=== PATIENT | male | born 1955 | race African-American/Black ===

== ENCOUNTER 2021-01-02 14:29 | Inpatient (IN) | payer MEDICARE, MEDICAID ==
[~2021-01-02] VITALS: Ht 177.8 cm; Wt 97.8 kg
[2021-01-02] MEDS ORDERED: ASPirin 81 mg TAB PO ONE (15:00)
[2021-01-02] MEDS ORDERED: ACETAMINOPHEN 325 MG TAB PO PRN (15:45)
[2021-01-02] MEDS ORDERED: HYDROcodone-ACET 5/325MG TAB PO PRN (15:45)
[2021-01-02] MEDS ORDERED: MORPHINE SULFATE 4 MG/ML SYR/VIAL IV PRN (15:45)
[2021-01-02] MEDS ORDERED: ONDANSETRON HCL 4 MG/2 ML VIAL IV PRN (15:45)
[2021-01-02] MEDS ORDERED: MORPHINE SULF INJ 2 MG/ML SYRINGE 1ML IV PRN (15:45)
[2021-01-02] MEDS ORDERED: DOCUSATE SOD 100 MG CAP PO PRN (15:45)
[2021-01-02] MEDS ORDERED: NITROGLYCERIN 0.4 MG SL TAB SL PRN (15:45)
[2021-01-02 15:56] LABS: Basophils # (auto) 0 10 ^3/uL (0-0.2); Basophils % (auto) 0.3 % (0.0-2.0); Eosinophils # (auto) 0 10 ^3/uL (0-0.8); Eosinophils % (auto) 0.2 % (0.0-7.0); Hematocrit 38.5 % (41.0-53.0); Hemoglobin 13.3 g/dL (13.5-17.5); Lymphocytes # (auto) 1.6 10 ^3/uL (0.4-5.4); Lymphocytes % (auto) 10.6 % (10.0-50.0); Mean Corpuscular Hemoglobin 31.7 pg (28.0-32.0); Mean Corpuscular Hgb Conc. 34.5 g/dL (32.0-36.0); Monocytes # (auto) 1.5 10 ^3/uL (0-1.3); Monocytes % (auto) 10.4 % (0.0-12.0); Neutrophils # (auto) 11.7 10 ^3/uL (1.6-8.6); Neutrophils % (auto) 78.5 % (37.0-80.0); Platelet Count (auto) 321 10^3/uL (140-450); Red Blood Cells 4.18 10^6/uL (4.5-5.90); White Blood Cell 14.9 10^3/uL (4.4-10.8)
[2021-01-02 16:05] LABS: Calcium 11.5 mg/dL (8.5-10.1)
[2021-01-02 16:25] LABS: BUN/Creatinine Ratio 17.6; Bilirubin, Total 0.5 mg/dL (0.2-1.0); Total Protein 9.3 g/dL (6.4-8.2)
[2021-01-02 16:37] LABS: Potassium 5.6 mmol/L (3.5-5.1)
[2021-01-02] MEDS ORDERED: cefTRIAXone 1GM/50ML D5W 50 ML IV ONE (17:30)
[2021-01-02 22:00] VITALS: BP 121/82
[2021-01-02] MEDS ORDERED: SODIUM CHLORIDE 0.9% 1,000 ML IV SCH (22:00)
[2021-01-02] MEDS ORDERED: DEXTROSE (50%) 50ML SYRG IV PRN (22:00)
[2021-01-02] MEDS ORDERED: SODIUM ZIRCONIUM CYCL 10 GM PAK PO ONE (22:00)
[2021-01-02] MEDS: FAMOTIDINE 20 MG TAB PO SCH (22:05)
[2021-01-02] MEDS: HEPARIN SODIUM (PORCINE) 5000 UNITS/ML 1ML VIAL SC SCH (23:09)
[2021-01-02] MEDS: ACCU-CHEK COMFORT CURVE STRIP VI SCH (23:10)
[2021-01-02] MEDS: InsuLIN REG 1unit/0.01ml Soln (100units/ml) SC SCH (23:13)
[2021-01-02] MEDS: INSULIN LANTUS (GLARGINE) 1 /0.01ml (100units/ml) SC SCH (23:15)
[2021-01-02 23:33] LABS: Urine Bacteria MOD /hpf (None Seen); Urine Blood Negative /uL (Negative); Urine Hyaline Cast MANY /lpf (0 - 2); Urine Mucus FEW (None Seen); Urine Specific Gravity 1.021 (1.001-1.035); Urine WBC 6 /hpf (0 - 3)
[2021-01-03] VITALS (7 sets, daily range): BP systolic 109–139; BP diastolic 49–83
[2021-01-03] MEDS: TEMAZEPAM 15 MG CAP PO PRN ×2 (01:56→22:14)
[2021-01-03 06:19] LABS: Basophils # (auto) 0.1 10 ^3/uL (0-0.2); Basophils % (auto) 0.4 % (0.0-2.0); Eosinophils # (auto) 0.1 10 ^3/uL (0-0.8); Eosinophils % (auto) 0.4 % (0.0-7.0); Hematocrit 35.1 % (41.0-53.0); Hemoglobin 12.2 g/dL (13.5-17.5); Lymphocytes % (auto) 15.1 % (10.0-50.0); Mean Corpuscular Hemoglobin 31.9 pg (28.0-32.0); Mean Corpuscular Hgb Conc. 34.7 g/dL (32.0-36.0); Mean Corpuscular Volume 91.9 fL (80.0-100.0); Monocytes # (auto) 1.6 10 ^3/uL (0-1.3); Monocytes % (auto) 11.9 % (0.0-12.0); Neutrophils # (auto) 9.7 10 ^3/uL (1.6-8.6); Neutrophils % (auto) 72.2 % (37.0-80.0); Nucleated Red Blood Cells % 0.2 %; Platelet Count (auto) 287 10^3/uL (140-450); Red Blood Cells 3.82 10^6/uL (4.5-5.90); Red Cell Distribution Width 13.9 % (11.8-14.3); White Blood Cell 13.4 10^3/uL (4.4-10.8)
[2021-01-03] MEDS: ACCU-CHEK COMFORT CURVE STRIP VI SCH ×4 (06:24→22:07)
[2021-01-03] MEDS: InsuLIN REG 1unit/0.01ml Soln (100units/ml) SC SCH ×4 (06:25→22:13)
[2021-01-03 07:57] LABS: Potassium 4.6 mmol/L (3.5-5.1)
[2021-01-03 08:09] LABS: Albumin 2.7 g/dL (3.4-5.0); Bilirubin, Total 0.4 mg/dL (0.2-1.0); Calcium 10.4 mg/dL (8.5-10.1); Total Protein 8.6 g/dL (6.4-8.2)
[2021-01-03] MEDS ORDERED: ENOXAPARIN SOD 30 MG/0.3 ML SYRINGE SC SCH (10:00)
[2021-01-03] MEDS: HEPARIN SODIUM (PORCINE) 5000 UNITS/ML 1ML VIAL SC SCH ×2 (10:32→22:16)
[2021-01-03] MEDS: SODIUM CHLORIDE 0.9% 1,000 ML IV SCH (15:12)
[2021-01-03] MEDS: cefTAZidime 1 GM in SODIUM CHL 0.9% 50 ML IV SCH (18:40)
[2021-01-03] MEDS: INSULIN LANTUS (GLARGINE) 1 /0.01ml (100units/ml) SC SCH (22:13)
[2021-01-03 23:16] LABS: Urine Bacteria NONE SEEN /hpf (None Seen); Urine Blood Negative /uL (Negative); Urine Hyaline Cast FEW /lpf (0 - 2); Urine Specific Gravity 1.018 (1.001-1.035); Urine WBC <1 /hpf (0 - 3)
[2021-01-03 23:29] LABS: Protein, Urine 51.6 mg/dL (0.0-11.9)
[2021-01-04] MEDS: SODIUM CHLORIDE 0.9% 1,000 ML IV SCH ×2 (03:00→15:30)
[2021-01-04] MEDS: ACCU-CHEK COMFORT CURVE STRIP VI SCH ×4 (07:00→22:08)
[2021-01-04] MEDS: InsuLIN REG 1unit/0.01ml Soln (100units/ml) SC SCH ×4 (07:00→22:11)
[2021-01-04] MEDS: HEPARIN SODIUM (PORCINE) 5000 UNITS/ML 1ML VIAL SC SCH ×2 (08:33→22:11)
[2021-01-04] MEDS ORDERED: HALOPERIDOL LACTATE 5 MG/ML INJ VIAL IM PRN (09:15)
[2021-01-04] MEDS: QUEtiapine FUMARATE 25 MG TAB PO SCH ×2 (10:18→22:08)
[2021-01-04 13:00] VITALS: BP 139/74
[2021-01-04 17:00] VITALS: BP 118/77
[2021-01-04] MEDS: cefTAZidime 1 GM in SODIUM CHL 0.9% 50 ML IV SCH (18:23)
[2021-01-04 20:00] VITALS: BP 137/79
[2021-01-04 22:00] VITALS: BP 137/79
[2021-01-04] MEDS: FAMOTIDINE 20 MG TAB PO SCH (22:07)
[2021-01-04] MEDS: INSULIN LANTUS (GLARGINE) 1 /0.01ml (100units/ml) SC SCH (22:11)
[2021-01-04 22:23] LABS: Albumin 2.6 g/dL (3.4-5.0); Calcium 10.6 mg/dL (8.5-10.1); Potassium 4.7 mmol/L (3.5-5.1)
[2021-01-04 22:27] LABS: Bilirubin, Total 0.4 mg/dL (0.2-1.0); Phosphorus 2.7 mg/dL (2.5-4.90); Total Protein 8.6 g/dL (6.4-8.2)
[2021-01-04 22:28] LABS: BUN/Creatinine Ratio 23.7
[2021-01-05] MEDS ORDERED: ALBUAER3 IN (01:58)
[2021-01-05] MEDS ORDERED: LISI2.5T47 PO (01:58)
[2021-01-05] MEDS ORDERED: MAGN1TAB29 PO (01:58)
[2021-01-05] MEDS ORDERED: CLOP75TA28 PO (01:58)
[2021-01-05] MEDS ORDERED: INSUINJ37 SC (01:58)
[2021-01-05] MEDS ORDERED: MONT5CHW23 PO (01:58)
[2021-01-05] MEDS ORDERED: FURO40TA4 PO (01:58)
[2021-01-05] MEDS ORDERED: GLIP5TAB12 PO (01:58)
[2021-01-05] MEDS ORDERED: SPIR25TA8 PO (01:58)
[2021-01-05] MEDS ORDERED: LORA0.5T20 PO (01:58)
[2021-01-05] MEDS ORDERED: ISOS30TA4 PO (01:58)
[2021-01-05] MEDS ORDERED: PRED10TA PO (01:58)
[2021-01-05] MEDS ORDERED: METO2.5T11 PO (01:58)
[2021-01-05] MEDS ORDERED: HYDR1TAB97 PO (01:58)
[2021-01-05] MEDS ORDERED: ASPI-543 PO (01:58)
[2021-01-05] MEDS ORDERED: AMIO200T33 PO (01:58)
[2021-01-05] MEDS ORDERED: CARV12.544 PO (01:58)
[2021-01-05] MEDS ORDERED: POTA1TAB61 PO (01:58)
[2021-01-05] MEDS ORDERED: HYDR10TA26 PO (01:58)
[2021-01-05] MEDS ORDERED: ATO40T PO (01:58)
[2021-01-05] MEDS ORDERED: CLOP75TA70 PO (01:58)
[2021-01-05] MEDS: SODIUM CHLORIDE 0.9% 1,000 ML IV SCH ×3 (04:00→21:03)
[2021-01-05] MEDS: ACCU-CHEK COMFORT CURVE STRIP VI SCH ×4 (06:31→21:49)
[2021-01-05] MEDS: InsuLIN REG 1unit/0.01ml Soln (100units/ml) SC SCH ×4 (06:35→21:58)
[2021-01-05] MEDS ORDERED: ASPirin 325 MG TAB PO ONE (08:15)
[2021-01-05] MEDS ORDERED: ADENOSINE 78 MG in GIVE UN-DILUTED 0 ML IV STA (08:42)
[2021-01-05 09:13] LABS: Basophils # (auto) 0 10 ^3/uL (0-0.2); Basophils % (auto) 0.4 % (0.0-2.0); Eosinophils # (auto) 0.1 10 ^3/uL (0-0.8); Hematocrit 41.1 % (41.0-53.0); Hemoglobin 13.2 g/dL (13.5-17.5); Lymphocytes # (auto) 1.6 10 ^3/uL (0.4-5.4); Lymphocytes % (auto) 19.3 % (10.0-50.0); Mean Corpuscular Hemoglobin 31.6 pg (28.0-32.0); Mean Corpuscular Hgb Conc. 32.2 g/dL (32.0-36.0); Monocytes % (auto) 12.5 % (0.0-12.0); Neutrophils # (auto) 5.4 10 ^3/uL (1.6-8.6); Neutrophils % (auto) 66.8 % (37.0-80.0); Nucleated Red Blood Cells % 0.1 %; Platelet Count (auto) 208 10^3/uL (140-450); Red Blood Cells 4.19 10^6/uL (4.5-5.90); Red Cell Distribution Width 14.5 % (11.8-14.3); White Blood Cell 8.2 10^3/uL (4.4-10.8)
[2021-01-05 09:15] VITALS: BP 129/77
[2021-01-05 09:47] LABS: Magnesium 1.9 mg/dL (1.6-2.6)
[2021-01-05 10:17] LABS: Anion Gap 9 (5-15); Bilirubin, Total 0.4 mg/dL (0.2-1.0); Carbon Dioxide 18 mmol/L (21-32); Chloride 105 mmol/L (98-107); Potassium 4.7 mmol/L (3.5-5.1); Sodium 132 mmol/L (136-145)
[2021-01-05 10:18] LABS: Alanine Aminotransferase 45 U/L (16-61); Albumin 2.5 g/dL (3.4-5.0); Alkaline Phosphatase 83 U/L (45-117); Aspartate Aminotransferase 31 U/L (15-37); Blood Urea Nitrogen 48 mg/dL (7-18); Calcium 10.3 mg/dL (8.5-10.1); GFR African American 39 mL/min; GFR Non-African American 33 mL/min; Glucose 165 mg/dL (74-106); Total Protein 8.3 g/dL (6.4-8.2)
[2021-01-05 10:54] VITALS: BP 133/69
[2021-01-05] MEDS: ASPirin 81 mg TAB PO SCH (11:58)
[2021-01-05] MEDS: QUEtiapine FUMARATE 25 MG TAB PO SCH ×2 (11:58→21:54)
[2021-01-05] MEDS: FAMOTIDINE 20 MG TAB PO SCH (11:58)
[2021-01-05] MEDS: HEPARIN SODIUM (PORCINE) 5000 UNITS/ML 1ML VIAL SC SCH ×2 (12:06→22:04)
[2021-01-05] MEDS: cefTAZidime 1 GM in SODIUM CHL 0.9% 50 ML IV SCH ×2 (12:11→21:53)
[2021-01-05 12:15] VITALS: BP 133/86
[2021-01-05] MEDS: CARVEDILOL 12.5 MG TAB PO SCH ×3 (12:17→22:52)
[2021-01-05 12:20] LABS: Free T4 (Free Thyroxine) 1.5 ng/dL (0.89-1.76)
[2021-01-05 13:47] LABS: CRP High Sensitivity 15.6 mg/dL (< 0.3)
[2021-01-05 14:15] LABS: Folate (Folic Acid) 13.21 ng/mL (5.38-24)
[2021-01-05 16:43] VITALS: BP 106/57
[2021-01-05 20:00] VITALS: BP 138/69
[2021-01-05] MEDS: INSULIN LANTUS (GLARGINE) 1 /0.01ml (100units/ml) SC SCH (21:58)
[2021-01-05 22:00] VITALS: BP 138/68
[2021-01-06 05:00] VITALS: BP 111/85
[2021-01-06] MEDS: SODIUM CHLORIDE 0.9% 1,000 ML IV SCH ×2 (05:42→10:00)
[2021-01-06] MEDS: ACCU-CHEK COMFORT CURVE STRIP VI SCH (06:34)
[2021-01-06] MEDS: InsuLIN REG 1unit/0.01ml Soln (100units/ml) SC SCH (06:35)
[2021-01-06 08:30] VITALS: BP 126/74
[2021-01-06] MEDS: HEPARIN SODIUM (PORCINE) 5000 UNITS/ML 1ML VIAL SC SCH (10:00)
[2021-01-06] MEDS: QUEtiapine FUMARATE 25 MG TAB PO SCH (10:00)
[2021-01-06] MEDS: FAMOTIDINE 20 MG TAB PO SCH (10:00)
[2021-01-06] MEDS: CARVEDILOL 12.5 MG TAB PO SCH (10:00)
[2021-01-06] MEDS: ASPirin 81 mg TAB PO SCH (10:00)
[2021-01-06] MEDS: cefTAZidime 1 GM in SODIUM CHL 0.9% 50 ML IV SCH (10:00)
[2021-01-06 10:06] LABS: RPR Non Reactive (Non Reactive)
== END 2021-01-06 10:05 | disposition left against medical advice (07) | DRG 302 ==
LOC: ER 14:29 → EDBD 14:29 → TELE 15:46 → TELE-WESTW 21:32
PROVIDERS: ADMIT Nurse Practitioner; ATTEND Nurse Practitioner
DX: I25.110 Atherosclerotic heart disease of native coronary artery with unstable angina pectoris (principal); G92 Toxic encephalopathy; N17.9 Acute kidney failure, unspecified; N39.0 Urinary tract infection, site not specified; I50.22 Chronic systolic (congestive) heart failure; E87.1 Hypo-osmolality and hyponatremia; F05 Delirium due to known physiological condition; I24.9 Acute ischemic heart disease, unspecified; I69.354 Hemiplegia and hemiparesis following cerebral infarction affecting left non-dominant side; H66.90 Otitis media, unspecified, unspecified ear; D64.9 Anemia, unspecified; Z20.822 Contact with and (suspected) exposure to COVID-19; E11.22 Type 2 diabetes mellitus with diabetic chronic kidney disease; E78.5 Hyperlipidemia, unspecified; E83.52 Hypercalcemia; F03.90 Unspecified dementia, unspecified severity, without behavioral disturbance, psychotic disturbance, mood disturbance, and anxiety; I25.5 Ischemic cardiomyopathy; J44.9 Chronic obstructive pulmonary disease, unspecified; E11.40 Type 2 diabetes mellitus with diabetic neuropathy, unspecified; E11.21 Type 2 diabetes mellitus with diabetic nephropathy; I10 Essential (primary) hypertension; Z53.20 Procedure and treatment not carried out because of patient's decision for unspecified reasons; Z79.02 Long term (current) use of antithrombotics/antiplatelets; Z79.4 Long term (current) use of insulin; Z79.82 Long term (current) use of aspirin; Z82.49 Family history of ischemic heart disease and other diseases of the circulatory system; Z83.3 Family history of diabetes mellitus; Z87.891 Personal history of nicotine dependence; Z95.1 Presence of aortocoronary bypass graft; Z95.810 Presence of automatic (implantable) cardiac defibrillator; N18.32 Chronic kidney disease, stage 3b
CPT/HCPCS: 36415; 70450; 71045; 76700; 78452; 80053; 80061; 81001; 82232; 82378; 82570; 82607; 82746; 82962; 83036; 83615; 83735; 83880; 83930; 84100; 84154; 84155; 84156; 84165; 84439; 84443; 84484; 85025; 86141; 86592; 87086; 87205; 87426; 93005; 93017; 93306; 93886; 96365; G0378; J0153; J0696; J1815